=== PATIENT | male | born 1965 | race Hispanic/Latino ===

== ENCOUNTER 2018-12-25 18:17 | Emergency (ER) | payer BC, OTHER ==
[2018-12-25 19:00] LABS: #Basophils 0.1 thou/uL (0.0-0.2); #Eosinphils 0.2 thou/uL (0.0-0.7); #Lymphocytes 3.2 thou/uL (1.20-3.40); #Monocytes 0.9 thou/uL (0.11-0.59); #Neutrophils 7.8 thou/uL (1.40-6.50); %Basophils 0.9 % (0.0-1.0); %Eosinophils 1.6 % (0.0-10.0); %Lymphocytes 26.3 % (21.0-51.0); %Monocytes 7.5 % (0.0-10.0); %Neutrophils 63.7 % (42.0-75.0); Hemoglobin 14.8 g/dL (14.0-18.0); Mean Corpuscular HGB CONC 33.3 g/dL (32.0-36.0); Mean Corpuscular Hemoglobin 28.1 pg (27.0-31.0); Mean Corpuscular Volume 84.4 fL (78.0-98.0); Mean Platelet Volume 8.3 fL (7.4-10.4); Platelet Count 272 thou/uL (130-400); RBC Distribution Width 12.3 % (11.5-14.5); Red Blood Cell (RBC) Count 5.26 mill/uL (4.70-6.10); White Blood Cell (WBC) Count 12.2 thou/uL (4.8-10.8)
[2018-12-25 19:16] LABS: ALT (SGPT) 30 U/L (8-55); AST (SGOT) 19 U/L (5-34); Albumin 4.9 g/dL (3.5-5.0); Alkaline Phosphatase 100 U/L (40-150); Anion Gap 18 mmol/L (10-20); BUN (Urea Nitrogen) 34 mg/dL (8.4-25.7); Bilirubin, Total 1.3 mg/dL (0.2-1.2); CK (CPK) 255 U/L (30-200); Calc. Creatinine Clearance 0 mL/min (70-130); Calcium 10.3 mg/dL (7.8-10.44); Carbon Dioxide 21 mmol/L (22-29); Chloride 99 mmol/L (98-107); Estimated GFR-MDRD 45; Globulin 3.3 g/dL (2.4-3.5); Glucose 253 mg/dL (70-105); Potassium 4.2 mmol/L (3.5-5.1); Protein, Total 8.2 g/dL (6.0-8.3); Sodium 134 mmol/L (136-145)
--- NOTE | 2018-12-27 11:07 | EKG ---
Test Reason : Blood Pressure : / mmHG Vent. Rate : 091 BPM Atrial Rate : 091 BPM P-R Int : 164 ms QRS Dur : 076 ms QT Int : 342 ms P-R-T Axes : 028 -05 013 degrees QTc Int : 420 ms Normal sinus rhythm Minimal voltage criteria for LVH, may be normal variant Borderline ECG Confirmed by IGOR RADER ([id number]), photographic editor VITOR LIMA ([id number]) on 12/27/2018 11:07:11 AM Referred By: Confirmed By:IGOR RADER
== END 2018-12-25 20:15 | disposition home or self-care (01) ==
LOC: ERS 18:17
DX: T67.5XXA Heat exhaustion, unspecified, initial encounter (principal); E86.0 Dehydration; E11.9 Type 2 diabetes mellitus without complications; Z79.84 Long term (current) use of oral hypoglycemic drugs
CPT/HCPCS: 36415; 80053; 82550; 84484; 85025; 93005; 96360

== ENCOUNTER 2020-01-22 22:11 | Emergency (ER) | payer OTHER ==
[2020-01-22 22:44] LABS: #Basophils 0.1 thou/uL (0.0-0.2); #Eosinphils 0.5 thou/uL (0.0-0.7); #Lymphocytes 3.5 thou/uL (1.20-3.40); #Monocytes 0.6 thou/uL (0.11-0.59); #Neutrophils 4.3 thou/uL (1.40-6.50); %Lymphocytes 38.5 % (21.0-51.0); %Monocytes 6.5 % (0.0-10.0); Hemoglobin 14.1 g/dL (14.0-18.0); Mean Corpuscular HGB CONC 32.5 g/dL (32.0-36.0); Mean Corpuscular Hemoglobin 28.1 pg (27.0-31.0); Mean Corpuscular Volume 86.7 fL (78.0-98.0); Mean Platelet Volume 8.5 fL (7.4-10.4); Platelet Count 253 thou/uL (130-400); RBC Distribution Width 12.4 % (11.5-14.5)
--- NOTE | 2020-01-22 22:46 | RAD ---
XR Chest 1 View Portable History: Chest pain Comparison: Radiograph 2005 Findings: Lungs are clear. No pneumothorax or effusion. Cardiac silhouette and mediastinal contours a re within normal limits. Impression: No acute intrathoracic abnormality.
[2020-01-22 23:06] LABS: ALT (SGPT) 27 U/L (8-55); AST (SGOT) 20 U/L (5-34); Albumin 4.5 g/dL (3.5-5.0); Alkaline Phosphatase 89 U/L (40-110); Anion Gap 15 mmol/L (10-20); BUN (Urea Nitrogen) 19 mg/dL (8.4-25.7); Bilirubin, Total 0.5 mg/dL (0.2-1.2); Calc. Creatinine Clearance 0 mL/min (70-130); Calcium 8.9 mg/dL (7.8-10.44); Carbon Dioxide 25 mmol/L (22-29); Chloride 103 mmol/L (98-107); Estimated GFR-MDRD 64; Globulin 3.7 g/dL (2.4-3.5); Glucose 257 mg/dL (70-105); Lipase 38 U/L (8-78); Potassium 3.9 mmol/L (3.5-5.1); Protein, Total 8.2 g/dL (6.0-8.3); Sodium 139 mmol/L (136-145)
[2020-01-23 01:02] LABS: Troponin I Less than 0.010 ng/mL (< 0.028)
== END 2020-01-23 01:15 | disposition home or self-care (01) ==
LOC: ERS 22:11
DX: R07.2 Precordial pain (principal); E11.9 Type 2 diabetes mellitus without complications; Z79.84 Long term (current) use of oral hypoglycemic drugs
CPT/HCPCS: 36415; 71045; 80053; 83690; 84484; 85025; 93005; 94760